=== PATIENT | female | born 1945 | race Caucasian/White ===

== ENCOUNTER 2018-11-30 19:45 | Emergency (ER) | payer MEDICARE, BC, OTHER ==
[2018-11-30 21:46] LABS: Actual Bicarbonate (HCO3a) 29.8 mEq/L (22-28); Analyzer IN Cardio ER; Base Excess (BEa) 4.6 mEq/L (-2.0 to +3.0); CO2 Tension 45.9 mmHg (35.0-45.0); Calcium, Ionized 1.16 mmol/L (1.12-1.30); Carboxyhemoglobin (COHb) 0.9 gm% (0.0-3.0); Hemoglobin (Hb) 15.5 g/dL (12.0-16.0); pH, Arterial 7.43 (7.35-7.45)
[2018-11-30 21:47] LABS: ALV-art Gradient 33.055 (0-20); O2 Tension (PaO2) 59.3 mmHg (> 70.0); Puncture Site RRA
--- NOTE | 2018-11-30 22:09 | RAD ---
CHEST ONE VIEW: 11/30/18 HISTORY: Cough. COMPARISON: Radiograph 03/07/16. FINDINGS: Heart size is mildly enlarged. Mild pulmonary venous congestion. Mild prominence of the pulmonary art eries. No pneumothorax. Small effusions. IMPRESSION: Cardiomegaly. Small effusions and mild pulmonary venous congestion. POS: HOME
[2018-11-30 22:10] LABS: #Lymphocytes 0.9 thou/uL (1.20-3.40); #Monocytes 0.5 thou/uL (0.11-0.59); #Neutrophils 5.3 thou/uL (1.40-6.50); %Basophils 0.6 % (0.0-1.0); %Eosinophils 0.2 % (0.0-10.0); %Lymphocytes 13.2 % (21.0-51.0); %Monocytes 6.7 % (0.0-10.0); %Neutrophils 79.3 % (42.0-75.0); Hemoglobin 15.3 g/dL (12.0-16.0); Mean Corpuscular HGB CONC 34.5 g/dL (32.0-36.0); Mean Corpuscular Hemoglobin 32.2 pg (27.0-31.0); Mean Corpuscular Volume 93.2 fL (78.0-98.0); Mean Platelet Volume 8.1 fL (7.4-10.4); Platelet Count 183 thou/uL (130-400); RBC Distribution Width 11.9 % (11.5-14.5); Red Blood Cell (RBC) Count 4.74 mill/uL (4.20-5.40); White Blood Cell (WBC) Count 6.7 thou/uL (4.8-10.8)
[2018-11-30 22:27] LABS: Bilirubin Negative (Negative); Blood, Urine Negative (Negative); Clarity CLEAR (Clear); Glucose, Urine (Dipstick) Negative (Negative); Leukocyte Small (Negative); Nitrite Negative (Negative); Protein, Urine (Dipstick) Negative (Neg-Trace); Specific Gravity, Urine 1.016 (1.002-1.036)
[2018-11-30 22:30] LABS: Bacteria/HPF None Seen HPF (None Seen); Hyaline Casts/LPF 0-3 HYALINE CAST LPF (0-3 Hyaline); Pathc Cast-AUWi Flag 0.29 (0-2.49); RBC/HPF None Seen HPF (0-3); Squamous Epithelial 0-3 HPF (0-3)
[2018-11-30 22:45] LABS: ALT (SGPT) 16 U/L (8-55); AST (SGOT) 20 U/L (5-34); Albumin 3.6 g/dL (3.4-4.8); Alkaline Phosphatase 69 U/L (40-150); Anion Gap 15 mmol/L (10-20); BUN (Urea Nitrogen) 12 mg/dL (9.8-20.1); Bilirubin, Total 0.6 mg/dL (0.2-1.2); CK (CPK) 308 U/L (29-168); Calc. Creatinine Clearance 0 mL/min (70-130); Calcium 9.2 mg/dL (7.8-10.44); Carbon Dioxide 28 mmol/L (23-31); Chloride 99 mmol/L (98-107); Estimated GFR-MDRD 80; Globulin 3.3 g/dL (2.4-3.5); Glucose 125 mg/dL (83-110); Lipase 16 U/L (8-78); Potassium 3.9 mmol/L (3.5-5.1); Protein, Total 6.9 g/dL (6.0-8.3); Sodium 138 mmol/L (136-145)
== END 2018-11-30 23:18 | disposition home or self-care (01) ==
LOC: ERS 19:45
DX: F03.90 Unspecified dementia, unspecified severity, without behavioral disturbance, psychotic disturbance, mood disturbance, and anxiety (principal); J20.9 Acute bronchitis, unspecified; E03.9 Hypothyroidism, unspecified; K21.9 Gastro-esophageal reflux disease without esophagitis; I10 Essential (primary) hypertension; E66.9 Obesity, unspecified; Z86.718 Personal history of other venous thrombosis and embolism; Z87.891 Personal history of nicotine dependence; Z79.899 Other long term (current) drug therapy
CPT/HCPCS: 36415; 51701; 71045; 80053; 81003; 81015; 82550; 82805; 83690; 83880; 84484; 85025; 87040; 87086; 87804; 93005; 96360; 96361; A4353

== ENCOUNTER 2020-03-15 20:49 | Inpatient (IN) | payer MEDICARE, BC, MEDICAID ==
[2020-03-16] MEDS ORDERED: Ondansetron ODT 4 MG TAB PO PRN (00:04)
[2020-03-16] MEDS ORDERED: Calcium Carbonate 500 MG ChewTAB PO PRN (00:04)
[2020-03-16] MEDS ORDERED: Acetaminophen 325 MG TAB PO PRN (00:04)
[2020-03-16] MEDS ORDERED: Ondansetron PF 4 MG/2 ML Vial IVP PRN (00:04)
[2020-03-16] MEDS ORDERED: Acetaminophen 650 MG Suppository PR PRN (00:04)
[2020-03-16] MEDS ORDERED: Ibuprofen 200 MG TAB PO PRN (00:42)
[2020-03-16] MEDS ORDERED: Sodium Chloride 0.9% 1,000 ML IV SCH (01:00)
[2020-03-16] MEDS: Sodium Chloride 0.9% 1,000 ML IV SCH ×3 (01:18→21:05)
[2020-03-16] MEDS: cefTRIAXone\\ROCEPHIN 2 GM in Sodium Chloride 0.9% 100 ML IVPB SCH (01:18)
[2020-03-16 01:35] LABS: Troponin I 0.136 ng/mL (< 0.028)
[2020-03-16] MEDS ORDERED: Enoxaparin Sodium 40 MG/0.4 ML SYRINGE SC SCH (02:00)
--- NOTE | 2020-03-16 02:39 | PDOC.FPRHP ---
- History of Present Illness Chief Complaint: AMS History of Present Illness: 74 yo female here with AMS and sepsis likely 2/2 UTI. Pt A&Ox0. Pt did not respond to questioning. Unable to get history from patient. Pt was found to have fever and tachycardia upon presentation to the ER. Called [facility] from which pt came. They had switched shifts and did not have much history to report from current staff on. Called pt Daughter in [place]. States she was called and told she was starting to act more altered then usual and not responding around 4 in the afternoon. She reports she has history of sundowning in the afternoons but has had episodes like this in the past when she has infections. She reports that she is not able to use right side to hx of brain mets and removal of L. Frontal parietal lobe. She reports she had seizure years ago but has been stable on her 2 seizure medications. Denies any recent adjustments to medication. ED Course: Got Cefepime and Vanc and 30ml/kg bolus in outside ER. - Allergies/Adverse Reactions Allergies Allergy/AdvReac Type Severity Reaction Status Date / Time iodine Allergy Mild Verified 03/16/20 04:34 codeine [Codeine] Allergy Verified 03/16/20 04:34 Iodinated Contrast Media Allergy Verified 03/16/20 04:34 [Iodinated Contrast Media - IV Dye] Sulfa (Sulfonamide Allergy Verified 03/16/20 04:34 Antibiotics) Tetracyclines Allergy Verified 03/16/20 04:34 - Home Medications Medication Instructions Recorded Confirmed Type Levothyroxine Sodium 88 mcg PO DAILY 04/26/13 03/16/20 History levETIRAcetam [levETIRAcetam Oral 500 mg PO TID 04/26/13 03/16/20 History Solution] Acetaminophen [Tylenol] 325 mg PO Q6HR PRN 03/05/16 03/16/20 History Divalproex Sodium [Depakote ER] 500 mg PO DAILY 03/05/16 03/16/20 History Famotidine [Pepcid] 20 mg PO DAILY 03/05/16 03/16/20 History Ipratropium/Albuterol Sulfate 3 ml NEB QID PRN 03/05/16 03/16/20 History [Duoneb] Potassium Chloride [K-Dur] 20 meq PO BID 03/05/16 03/16/20 History Furosemide [Lasix] 20 mg PO DAILY 03/16/20 03/16/20 History Menthol [Biofreeze 4% Gel] 1 applic TOP QID PRN 03/16/20 03/16/20 History - History PMHx: HTN, GERD, Hypothyroidism, Hx Lung cancer w/ Brain mets PSHx: RLL wedge lung resection, L. Frontal Parietal Lobectomy, Appendectomy, Cholecystectomy, Hysterectomy, L. Ankle Repair FHx: Noncontributory Social: Pt former smoker, Daughter in Law denies alcohol or illicit drug use - Review of Systems ROS unobtainable: due to mental status - Vital signs BP: [136/84] HR: [112] RR: [18] Tmax: [101.1 axillary] Pox: [100]% on [2L] Wt : [92kg] - Physical Exam -Constitutional: Pt A&Ox2. Pt having some chills when in room HEENT: conjunctiva clear Neck: supple, trachea midline, no JVD, no thyromegaly -Heart: Sinus tachycardia, no murmurs or gallops Lungs: CTAB, no respiratory distress, good air movement, no rales/rhonchi, no wheezing Abdomen: soft, non-tender, bowel sounds present, no masses/distention -Neurological: Unable to fully assess due to mental status Skin: no rash/lesions Heme/Lymphatic: no unusual bruising or bleeding -Psychiatric: A&Ox 0 FMR H&P: Results - Labs Result Diagrams: 03/16/20 05:15 03/16/20 05:15 - EKG Interpretation EKG: Reported showed LBBB and sinus tachycardia. Repeat pending - Radiology Interpretation CT scan - head Status: image reviewed by me, report reviewed by me (Brain CT: Significantly limited exam. No intracranial abnormality) Chest x-ray Status: image reviewed by me, report reviewed by me ( CXR: Cardiomegaly and chronic interstitial lung diseas) FMR H&P: A/P - Problem List (1) Sepsis Current Visit: Yes Status: Acute Code(s): A41.9 - SEPSIS, UNSPECIFIED ORGANISM (2) UTI (urinary tract infection) Current Visit: Yes Status: Acute (3) HTN (hypertension) Current Visit: Yes Status: Acute Code(s): I10 - ESSENTIAL (PRIMARY) HYPERTENSION (4) Hypothyroidism Current Visit: Yes Status: Acute Code(s): E03.9 - HYPOTHYROIDISM, UNSPECIFIED (5) GERD (gastroesophageal reflux disease) Current Visit: Yes Status: Acute Code(s): K21.9 - GASTRO-ESOPHAGEAL REFLUX DISEASE WITHOUT ESOPHAGITIS (6) History of adenocarcinoma of lung Current Visit: Yes Status: Acute Code(s): Z85.118 - PERSONAL HISTORY OF MALIGNANT NEOPLASM OF BRONCHUS AND LUNG (7) Hx of craniotomy Current Visit: Yes Status: Acute Code(s): Z98.890 - OTHER SPECIFIED POSTPROCEDURAL STATES (8) History of lobectomy of lung Current Visit: Yes Status: Acute Code(s): Z90.2 - ACQUIRED ABSENCE OF LUNG [ PART OF] (9) Seizure Current Visit: Yes Status: Acute Code(s): R56.9 - UNSPECIFIED CONVULSIONS (10) NSTEMI (non-ST elevated myocardial infarction) Current Visit: Yes Status: Acute Code(s): I21.4 - NON-ST ELEVATION (NSTEMI) MYOCARDIAL INFARCTION - Plan AMS -likely 2/2 sepsis from UTI. Pt somewhat Hyperthyroid as well. A&Ox0. Hx of L. Frontal Parietal Lobectomy -Speech consulted -Hx of seizures- no seizure activity noted. Prolactin pending Sepsis 2/2 UTI -UA shows concern for infection. Has fever and Tachycardia -Given Cefepime and Vanc in ER. Switched to rocephin -Blood and Urine Cx ordered -Given 30ml/kg bolus in ER. Given another 1L bolus. IVF NS@100 -WBC 14. LA 1.8 Type 2 NSTEMI -Trop elevated at ER. Repeat ordered. Will trend. Likely 2/2 demand -EKG at ER showed LBBB. Repeat EKG ordered -ASA Hx Seizures -Continue home meds -Prolactin pending. No seizure activity noted Hx Lung Adenocarcinoma w/ RLL wedge Resection Hx L. Frontal Parietal Lobectomy -Has reported sundowning towards end of day -Has residual R. sided weakness -Fall risk -PT/OT consulted HTN -BP stable, continue home meds Hypothyroidism -TSH .2. Low. Will hold home dose at this time. Spine Met -Daughter in Law reports stable when last saw specialist. Reports not canidate for tx. DVT ppx: Lovenox Dispo: Will tx for UTI. Will give fluids for tachycardia. PT/OT/Speech to further assess pt AMS. Addendum - Attending - Attending Attestation Date/Time: 03/16/20 5545 I personally evaluated the patient and discussed the management with Dr. Chi I agree with the History, Examination, Assessment and Plan documented above with any addition or exceptions noted below. Admit for Severe sepsis 2/2 UTI. Meet severe criteria with elevated trop. Resolved with fluids. Continue rocephin. Valproic acid and keppra subtherapeutic. Will contact outpt neurology to discuss. No seizure activity recently per report from DC. Will attempt to contact family to discuss CODE status. LOS likely >48 hrs.
[2020-03-16 05:26] LABS: #Eosinphils 0.1 thou/uL (0.0-0.7); #Lymphocytes 1.9 thou/uL (1.20-3.40); #Monocytes 1.1 thou/uL (0.11-0.59); #Neutrophils 8.3 thou/uL (1.40-6.50); %Basophils 0.3 % (0.0-1.0); %Eosinophils 0.6 % (0.0-10.0); %Lymphocytes 16.7 % (21.0-51.0); %Neutrophils 72.5 % (42.0-75.0); Mean Corpuscular HGB CONC 33.1 g/dL (32.0-36.0); Mean Corpuscular Hemoglobin 31.4 pg (27.0-31.0); Mean Corpuscular Volume 94.8 fL (78.0-98.0); Mean Platelet Volume 8.4 fL (7.4-10.4); Platelet Count 189 thou/uL (130-400); RBC Distribution Width 11.6 % (11.5-14.5); Red Blood Cell (RBC) Count 4.12 mill/uL (4.20-5.40); White Blood Cell (WBC) Count 11.4 thou/uL (4.8-10.8)
[2020-03-16 05:53] LABS: ALT (SGPT) 34 U/L (8-55); AST (SGOT) 35 U/L (5-34); Albumin 2.9 g/dL (3.4-4.8); Alkaline Phosphatase 74 U/L (40-110); Anion Gap 12 mmol/L (10-20); BUN (Urea Nitrogen) 7 mg/dL (9.8-20.1); Bilirubin, Total 0.5 mg/dL (0.2-1.2); Calc. Creatinine Clearance 135 mL/min (70-130); Calcium 7.8 mg/dL (7.8-10.44); Carbon Dioxide 23 mmol/L (23-31); Chloride 103 mmol/L (98-107); Estimated GFR-MDRD Greater than 90; Globulin 2.6 g/dL (2.4-3.5); Glucose 98 mg/dL (83-110); Potassium 3.2 mmol/L (3.5-5.1); Protein, Total 5.5 g/dL (6.0-8.3); Sodium 135 mmol/L (136-145)
[2020-03-16 05:55] LABS: Troponin I 0.092 ng/mL (< 0.028)
[2020-03-16] MEDS: levETIRAcetam 500 mg/5 ml Oral Solution PO SCH ×3 (08:56→21:05)
[2020-03-16] MEDS: Famotidine 20 MG TAB PO SCH (08:56)
[2020-03-16] MEDS: Potassium Chloride 20 MEQ TAB PO SCH ×2 (08:57→18:13)
[2020-03-16] MEDS: Aspirin 81 mg Enteric Coated Tablet PO SCH (08:57)
[2020-03-16] MEDS ORDERED: Famotidine/PF 20 mg/2ml Vial SLOW IVP SCH (09:00)
[2020-03-16 12:52] VITALS: BMI 30.9
--- NOTE | 2020-03-16 17:39 | EKG ---
Test Reason : TROP Blood Pressure : / mmHG Vent. Rate : 100 BPM Atrial Rate : 100 BPM P-R Int : 172 ms QRS Dur : 086 ms QT Int : 374 ms P-R-T Axes : 060 031 048 degrees QTc Int : 482 ms Normal sinus rhythm Normal ECG When compared with ECG of 30-NOV-2018 21:33, Left bundle branch block is no longer Present Confirmed by DR. Caitlyn GUIDRY ([id number]) on 03/16/2020 5:39:07 PM Referred By: ROSAS Confirmed By:DR. Caitlyn GUIDRY
[2020-03-17] MEDS: cefTRIAXone\\ROCEPHIN 2 GM in Sodium Chloride 0.9% 100 ML IVPB SCH (01:22)
--- NOTE | 2020-03-17 07:02 | PDOC.FM ---
- Subjective Subjective: Patient is somewhat more alert this morning and responsive to her name. Disoriented to location or time. While in the room, witnessed patient's left arm with repetitive jerking motion, patient was alert at the time of this occurring. Rest of history and ROS unobtainable 2/2 patient's mental status. - Objective MAR Reviewed: Yes Vital Signs & Weight: Vital Signs (12 hours) Temp Pulse Resp BP Pulse Ox 03/17/20 03:23 97.9 F 78 16 135/80 94 L 03/16/20 23:10 97.7 F 71 16 109/64 93 L 03/16/20 20:35 97.8 F 70 16 107/65 91 L Weight Admit Weight 92.079 kg Weight 92.079 kg I&O: 03/16/20 03/17/20 03/18/20 06:59 06:59 06:59 Intake Total 600 1800 Balance 600 1800 Result Diagrams: 03/17/20 07:16 03/17/20 07:16 Phys Exam - Physical Examination Constitutional: NAD HEENT: moist MMs, sclera anicteric Neck: no JVD, supple Respiratory: no rhonchi, clear to auscultation bilateral Cardiovascular: RRR, no significant murmur Gastrointestinal: soft, no distention, positive bowel sounds TTP over suprapubic area Musculoskeletal: no edema, pulses present Neurological: moves all 4 limbs rhythmic jerking motion of left arm/shoulder Psychiatric: normal affect Deviation from normal: alerted, oriented to her name, not oriented to place or time unable to answer questions Skin: no rash, normal turgor Dx/Plan (1) AMS (altered mental status) Code(s): R41.82 - ALTERED MENTAL STATUS, UNSPECIFIED Status: Acute Qualifiers: Altered mental status type: disorientation Qualified Code(s): R41.0 - Disorientation, unspecified (2) HTN (hypertension) Code(s): I10 - ESSENTIAL (PRIMARY) HYPERTENSION Status: Acute Qualifiers: Hypertension type: unspecified Qualified Code(s): I10 - Essential (primary ) hypertension (3) Hx of craniotomy Code(s): Z98.890 - OTHER SPECIFIED POSTPROCEDURAL STATES Status: Acute (4) NSTEMI (non-ST elevated myocardial infarction) Code(s): I21.4 - NON-ST ELEVATION (NSTEMI) MYOCARDIAL INFARCTION Status: Acute (5) Sepsis Code(s): A41.9 - SEPSIS, UNSPECIFIED ORGANISM Status: Acute Qualifiers: Sepsis type: sepsis due to unspecified organism Sepsis acute organ dysfunction status: without acute organ dysfunction Qualified Code(s): A41.9 - Sepsis, unspecified organism (6) UTI (urinary tract infection) Status: Acute Qualifiers: Urinary tract infection type: acute cystitis Hematuria presence: with hematuria Qualified Code(s): N30.01 - Acute cystitis with hematuria - Plan Plan: Patient is a 74 yo female who presents with Sepsis secondary to UTI: #AMS -likely 2/2 sepsis from UTI. Pt somewhat Hyperthyroid as well. A&Ox0. Hx of L. Frontal Parietal Lobectomy -Speech therapy consulted--recommend continued ORTHOTICS PROSTHETICS ASSISTANT therapy -Hx of seizures- see below -Prolactin pending #Sepsis 2/2 UTI -UA shows concern for infection. Has fever and Tachycardia -Given Cefepime and Vanc in ER. Switched to Rocephin on admission (03/16) -Blood and Urine Cx ordered, results pending (done at outside facility) -Given 30ml/kg bolus in ER. Given another 1L bolus. IVF NS@100 -WBC 14. LA 1.8 #Type 2 NSTEMI -Trop elevated at ER. Will trend. Likely 2/2 demand 0.038 > 0.136 > 0.092 -EKG at ER showed LBBB. Repeat EKG similar -ASA given #Hx Seizures -Continue home meds of Keppra & Depakote -Prolactin pending. No seizure activity noted -Keppra level <2 (low), Depakote level 28.4 (low, therapeutic range 50-100) -will need to arrange for outpatient f/u with Neurology to have seizure meds titrated, spoke with [id number] Iris on 03/16 who states she will look into which Neurologist is associated with [facility] where patient resides, offered to arrange with Neurologist in [facility] Dr. Theodore as an option if unable to determine another neurologist of patient's preference -rhythmic jerking motion observed in left arm/shoulder while patient alert and lying in bed -daughter in law reports that patient last saw a neurologist in [place] 8 yrs ago, this physician has since retired, states seizure meds have been being refilled by PCP #Hx Lung Adenocarcinoma w/ RLL wedge Resection #Hx L. Frontal Parietal Lobectomy -Has reported sundowning towards end of day -Has residual R. sided weakness -Fall risk -PT/OT consulted #HTN -BP stable, continue home meds #Hypothyroidism -TSH .2. Low. Will hold home dose at this time. #Spine Met -Daughter in Law reports stable when last saw specialist. Reports not candidate for tx. Diet: Regular with Ensure Enlive supplement BID DVT ppx: Lovenox Code status: DNR PCP: Terri Carrillo, confirmed by [facility] paperwork Dispo: Will tx for UTI. Will give fluids for tachycardia. Await urine culture results. Anticipate discharge back to [facility] in < 48 hours. Addendum - Attending - Attending Attestation Date/Time: 03/17/20 5916 I personally evaluated the patient and discussed the management with Dr. Luz. I agree with the History, Examination, Assessment and Plan documented above with any addition or exceptions noted below. Blood cx 2/2 positive for MRSE. UCx positive for GNR. Add vanc, continue rocephin. Patient is having twitching of left shoulder/neck. Alert during these episodes but given hx of seizures, will consult neurology for evaluation. Patient's PCP is Dr[facility] Will call and transfer care tomorrow.
[2020-03-17 07:28] LABS: #Eosinphils 0.2 thou/uL (0.0-0.7); #Lymphocytes 1.3 thou/uL (1.20-3.40); #Monocytes 0.7 thou/uL (0.11-0.59); #Neutrophils 5.8 thou/uL (1.40-6.50); %Basophils 0.6 % (0.0-1.0); %Eosinophils 2.3 % (0.0-10.0); %Lymphocytes 16.6 % (21.0-51.0); %Monocytes 8.6 % (0.0-10.0); %Neutrophils 71.9 % (42.0-75.0); Hemoglobin 13.3 g/dL (12.0-16.0); Mean Corpuscular HGB CONC 33.4 g/dL (32.0-36.0); Mean Corpuscular Hemoglobin 31.7 pg (27.0-31.0); Mean Corpuscular Volume 94.8 fL (78.0-98.0); Mean Platelet Volume 8.2 fL (7.4-10.4); Platelet Count 190 thou/uL (130-400); RBC Distribution Width 11.4 % (11.5-14.5); Red Blood Cell (RBC) Count 4.21 mill/uL (4.20-5.40)
[2020-03-17 07:50] LABS: ALT (SGPT) 27 U/L (8-55); AST (SGOT) 19 U/L (5-34); Albumin 2.9 g/dL (3.4-4.8); Alkaline Phosphatase 72 U/L (40-110); Anion Gap 12 mmol/L (10-20); BUN (Urea Nitrogen) 6 mg/dL (9.8-20.1); Bilirubin, Total 0.2 mg/dL (0.2-1.2); Calc. Creatinine Clearance 140 mL/min (70-130); Calcium 8.4 mg/dL (7.8-10.44); Carbon Dioxide 27 mmol/L (23-31); Chloride 109 mmol/L (98-107); Estimated GFR-MDRD Greater than 90; Globulin 2.2 g/dL (2.4-3.5); Glucose 96 mg/dL (83-110); Potassium 3.7 mmol/L (3.5-5.1); Protein, Total 5.1 g/dL (6.0-8.3); Sodium 144 mmol/L (136-145)
[2020-03-17] MEDS: Potassium Chloride 20 MEQ TAB PO SCH ×2 (08:37→16:02)
[2020-03-17] MEDS: Aspirin 81 mg Enteric Coated Tablet PO SCH (08:37)
[2020-03-17] MEDS: levETIRAcetam 500 mg/5 ml Oral Solution PO SCH ×3 (08:37→21:21)
[2020-03-17] MEDS: Famotidine 20 MG TAB PO SCH (08:37)
[2020-03-17] MEDS: Sodium Chloride 0.9% 1,000 ML IV SCH ×3 (08:40→21:21)
--- NOTE | 2020-03-17 12:38 | PDOC.BPN ---
- Brief Progress Note Spoke with Dr. Hernández and Dr. Adame from [facility] group, they will assume care of patient on 03/18/2020.
[2020-03-17] MEDS: Vancomycin HCl 1.25 GM in Sodium Chloride 0.9% 250 ML 250 ML IVPB SCH (23:28)
[2020-03-18] MEDS: cefTRIAXone\\ROCEPHIN 2 GM in Sodium Chloride 0.9% 100 ML IVPB SCH (01:39)
[2020-03-18 05:01] LABS: #Eosinphils 0.2 thou/uL (0.0-0.7); #Lymphocytes 1.7 thou/uL (1.20-3.40); #Monocytes 0.5 thou/uL (0.11-0.59); #Neutrophils 4.3 thou/uL (1.40-6.50); %Basophils 0.5 % (0.0-1.0); %Eosinophils 3.3 % (0.0-10.0); %Lymphocytes 25.5 % (21.0-51.0); %Monocytes 7.7 % (0.0-10.0); %Neutrophils 63.2 % (42.0-75.0); Hemoglobin 12.5 g/dL (12.0-16.0); Mean Corpuscular Hemoglobin 31.7 pg (27.0-31.0); Mean Corpuscular Volume 95.9 fL (78.0-98.0); Mean Platelet Volume 8.5 fL (7.4-10.4); Platelet Count 208 thou/uL (130-400); RBC Distribution Width 11.6 % (11.5-14.5); Red Blood Cell (RBC) Count 3.93 mill/uL (4.20-5.40); White Blood Cell (WBC) Count 6.7 thou/uL (4.8-10.8)
[2020-03-18 05:26] LABS: ALT (SGPT) 19 U/L (8-55); AST (SGOT) 11 U/L (5-34); Albumin 2.9 g/dL (3.4-4.8); Alkaline Phosphatase 64 U/L (40-110); Anion Gap 11 mmol/L (10-20); BUN (Urea Nitrogen) 7 mg/dL (9.8-20.1); Bilirubin, Total 0.2 mg/dL (0.2-1.2); Calc. Creatinine Clearance 135 mL/min (70-130); Calcium 8.6 mg/dL (7.8-10.44); Carbon Dioxide 28 mmol/L (23-31); Chloride 105 mmol/L (98-107); Estimated GFR-MDRD Greater than 90; Globulin 2.5 g/dL (2.4-3.5); Glucose 96 mg/dL (83-110); Magnesium 1.6 mg/dL (1.6-2.6); Potassium 3.6 mmol/L (3.5-5.1); Protein, Total 5.4 g/dL (6.0-8.3); Sodium 140 mmol/L (136-145)
[2020-03-18] MEDS: levETIRAcetam 500 mg/5 ml Oral Solution PO SCH ×3 (08:55→19:57)
[2020-03-18] MEDS: Famotidine 20 MG TAB PO SCH (08:55)
[2020-03-18] MEDS: Aspirin 81 mg Enteric Coated Tablet PO SCH (08:55)
[2020-03-18] MEDS: Potassium Chloride 20 MEQ TAB PO SCH ×2 (08:55→18:24)
[2020-03-18] MEDS: Vancomycin HCl 1.25 GM in Sodium Chloride 0.9% 250 ML 250 ML IVPB SCH (12:15)
[2020-03-18] MEDS: Sodium Chloride 0.9% 1,000 ML IV SCH (14:34)
--- NOTE | 2020-03-18 15:33 | ULT ---
BILATERAL RENAL ULTRASOUND: 03/18/20 HISTORY: Recurrent UTIs. FINDINGS: The right kidney measures 10.6 cm in length and the left kidney measures 11 cm in length. No focal m ass or hydronephrosis seen on either side. Cortical echogenicity and thickness appears normal. The pr evoid volume of the urinary bladder is 172 mL. The urinary bladder has a grossly unremarkable appeara nce. No shadowing calculi is seen in the kidneys or urinary bladder. IMPRESSION: Normal exam. POS: [facility]
--- NOTE | 2020-03-18 15:47 | CT ---
CT abdomen and pelvis noncontrast HISTORY: UTI. Flank pain. FINDINGS: Each renal collecting system, ureter, and urinary bladder are decompressed without stone ev ident. There is calcification throughout the arterial structures. Peripheral interstitial thickening at each lung base. Calcified granulomata are consistent with healed granulomatous disease. Chronic appearing compression deformities involving the L2 (40%) and L3 (20%) vertebral bodies. Degenerative changes also evident throughout the lumbar spine. Gallbladder surgically absent. Lack of contrast limits evaluation of the soft tissues. No evidence of bowel obstruction or inflammat ion. At the posterior cortex of the left kidney, a subtle well-circumscribed low-density lesion has the appearance of a cyst. IMPRESSION : No CT evidence of urinary tract obstruction or calcification. No acute abnormalities are demonstrated . Atherosclerosis.
--- NOTE | 2020-03-18 19:31 | PDOC.HOSPP ---
- Subjective Encounter Date: 03/18/20 Encounter Time: 16:00 Subjective: Patient seen and examined for AMS. Mentation improving. No new complaints. No overnight events - Objective Vital Signs & Weight: Vital Signs (12 hours) Temp Pulse Resp BP Pulse Ox 03/18/20 11:07 97.7 F 81 18 130/76 91 L Weight Admit Weight 203 lb Weight 203 lb I&O: 03/17/20 03/18/20 03/19/20 06:59 06:59 06:59 Intake Total 1800 1800 Output Total 2200 Balance 1800 -400 Result Diagrams: 03/19/20 05:17 03/19/20 05:17 Additional Labs: Microbiology 03/15/20 19:00 Urine Straight Catheter Urine Culture - Final Escherichia coli 03/15/20 19:14 Venous blood - Right Arm Blood Culture - Preliminary Staphylococcus epidermidis Coagulase Neg Staphylococcus#2 03/15/20 19:10 Venous blood - Right Arm Blood Culture - Preliminary Staphylococcus species Staphylococcus species#2 Radiology Reviewed by me: Yes (CT abd - no obstructive uropathy) Hospitalist ROS - Review of Systems Cardiovascular: denies: chest pain, palpitations, orthopnea, paroxysmal noc. dyspnea, edema, light headedness, other Gastrointestinal: denies: nausea, vomiting, abdominal pain, diarrhea, constipation, melena, hematochezia, other - Medication Medications: Active Medications Generic Name Dose Route Start Last Admin Trade Name Freq PRN Reason Stop Dose Admin Aspirin 81 mg 03/16/20 09:00 03/18/20 08:55 Ecotrin PO 81 mg DAILY MINDY Administration Divalproex Sodium 500 mg 03/16/20 09:00 03/18/20 08:55 Depakote Er PO 500 mg DAILY MINDY Administration Famotidine 20 mg 03/16/20 09:00 03/18/20 08:55 Pepcid PO 20 mg DAILY MINDY Administration Sodium Chloride 1,000 mls @ 100 mls/hr 03/16/20 00:45 03/18/20 14:34 Normal Saline 0.9% IV Not Given .Q10H MINDY Ceftriaxone Sodium 2 gm/ 100 mls @ 200 mls/hr 03/16/20 01:00 03/18/20 01:39 Sodium Chloride IVPB 100 mls Q24HR MINDY Administration Levetiracetam 500 mg 03/16/20 09:00 03/18/20 15:51 Keppra Oral Solution PO 500 mg TID MINDY Administration Potassium Chloride 20 meq 03/16/20 08:00 03/18/20 18:24 K-Dur PO 20 meq BID-WM MINDY Administration - Exam General Appearance: NAD Neck: supple, no JVD Heart: RRR, no rubs Respiratory: CTAB, no wheezes, no ronchi Gastrointestinal: non-tender, non-distended, normal bowel sounds Extremities: no cyanosis, no clubbing Hosp A/P - Plan DVT proph w/SCDs Toxic Metabolic Encephalopathy/Sepsis due to UTI - POA HTN HLD GERD h/o Lung CA h/o Seizure dz Type 2 TX - POA Obesity BMI 30.9 Hypothyroidism h/o Rt medial malleolus fracture Dementia h/o falls h/o essential tremors Staph bacteremia - prob contaminant PLAN: ID input appreciated Cont IV Ceftriaxone CT abd reviewed Cont other meds as above DC planning AM labs
[2020-03-18] MEDS: Saccharomyces boulardii 250 MG CAP PO SCH (19:57)
--- NOTE | 2020-03-18 20:14 | CON ---
DATE OF CONSULTATION: 03/18/2020 REASON FOR CONSULTATION: Altered mental status, concern with bacteremia. HISTORY OF PRESENT ILLNESS: A 74-year-old, who has a history of pulmonary fibrosis, COPD, chronic smoking, and also history of adenocarcinoma of lung with brain mets, status post resection of the brain mets in 2008. She also had a right lung wedge resection of the adenocarcinoma at the same time. She did have radiation therapy and chemo and has pretty much been in remission since, most likely cured from this malignancy, which is quite remarkable for lung malignancy outcome. The last admission posted in the hospital computer is from 2015 when she had a cholecystectomy, and she has not been here since except for the ER visits, she had one in 2016 when she presented after a fall, when she was trying to get up and go to the bathroom with a few areas of ecchymosis, and in March 2018, she fell again. She was then at a half-way, CT of the head did not show any abnormalities, and subsequently the very next month, she was brought because of injury to the right ankle after a fall. In November 2018, she had altered mental state, which was not confirmed after evaluation in the emergency room, and now she presents with another event associated with altered mental state. She had a CT of head, which did not show anything of significance. Initial findings included a BP of 130/70, pulse 120, respirations 18, temperature 99.4, and O2 saturations were 94. The next temperature that was taken in the emergency room was 101.8, and other findings included a white cell count of 11.4, the lymphocytes were 1.9, and platelet count 189,000. The chemistry with a creatinine 0.54, AST 35, albumin 2.9. Urinalysis was abnormal with 21 to 50 wbc's. Chest x-ray was remarkable for cardiomegaly and some chronic interstitial disease, but no infiltrates, no pleural effusions. Blood cultures with 2 different Staphylococci, probably coagulase-negative Staph both, and there is a urine culture with E coli with a very broad susceptibility profile, 10,000 to 25 ,000 CFUs per mL. Currently, Ms. Painter is awake. She has this steady low- frequency head bobbing movement, which appears to be chronic. She has quite a bit of cognitive impairment and she is unable to provide us with significant data to review about her review of systems or symptoms or history. In the review of systems at the bedside, she did have tenderness on palpation of the abdomen, which was somewhat diffuse. PAST MEDICAL HISTORY: Includes adenocarcinoma of lung, in remission after treatment with resection of lung and brain masses and chemo/radiation therapy; hypothyroidism; hypertension; GERD. SURGICAL HISTORY: Lung and brain mass resections, appendectomy, cholecystectomy , hysterectomy, left ankle repair. FAMILY HISTORY: Not available. SOCIAL HISTORY: Former smoker. residential resident. She has a DNR order. ALLERGY HISTORY: Iodine, codeine, sulfa drugs, and tetracycline. CURRENT MEDICATIONS: 1. Ecotrin. 2. Tums. 3. Ceftriaxone. 4. Depakote. 5. Pepcid. 6. Motrin. 7. Keppra. 8. Zofran. 9. K-Dur. 10. Vancomycin. PHYSICAL EXAMINATION: VITAL SIGNS: T-max 101, currently 97.4. BP 130/76, pulse 81, respirations 18, and O2 saturation 91% to 93%. SKIN: Shows a peripheral IV access. She does not have a Chavez catheter and no lymphadenopathy. HEENT: Ocular movements are conjugate. Oral cavity normal except for absence of [place] dentition. NECK: Supple. No jugular vein distention. LUNGS: Symmetric, clear breath sounds. HEART: S1 and S2, regular rate. No S3 or S4. ABDOMEN: Soft with tenderness in various areas of the abdominal area, mostly in the lower quadrants. No rebound tenderness. No masses are palpable. Question of bladder distention. 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 Pulses 1+ in dorsalis pedis. No edema. She is able to move extremities on command. Plantar responses are flexor. NEUROLOGIC: She has this low-frequency tremor with bobbing of head, which probably is essential tremor. She is awake, could not tell me her name or the location or the date. She was able to follow some commands. LABORATORY STUDIES: White cell count is down to 6.7, hemoglobin 12.5, platelets 208. Sodium 135, creatinine 0.54, with AST 35, albumin 2.9. ASSESSMENT: 1. Lung cancer, presumably in remission, more than 10 years after the treatment, which included surgery and chemoradiation therapy elsewhere. 2. Dementia. 3. Essential tremor. 4. Altered mental state. 5. Fever with abnormal urinalysis and positive urine culture. DISCUSSION: The first thing to be considered is COVID-19. She does not have lymphocytopenia. Had a fever on arrival. Chest x-ray was normal. Apparently, there has been no cases identified in the half-way where she is admitted. The urine culture showed only a low number of E coli organisms, although that could still be the main issue causing the patient's symptoms and I think we should image her abdomen to make sure she does not have obstructive uropathy and make sure she is not retaining urine. She has been started on Rocephin and there has been prompt resolution of neutrophilia. She has a normal differential at this moment and the likelihood of COVID-19 is low, so I am not going to recommend testing at this time. The bacteremia is more likely to represent contamination of the sample rather than true bacteremia and I would not advise treating this finding. The reason for that is because she has more than one coagulase-negative Staphylococcus in each sample and she does not have a device. She was a difficult stick for obtaining samples of blood, and the sample timing is logged as only 4 minutes difference in the timing of the collection. Anyway, so I see a quite a bit of technical issues with the sample and I would not treat this finding. In view of abd tenderness and abnormal urine findings, will check abdpelvis CT Job ID: [id number] [facility]
[2020-03-19] MEDS: Sodium Chloride 0.9% 1,000 ML IV SCH ×3 (01:21→12:26)
[2020-03-19] MEDS: cefTRIAXone\\ROCEPHIN 2 GM in Sodium Chloride 0.9% 100 ML IVPB SCH (01:21)
[2020-03-19 05:45] LABS: #Eosinphils 0.3 thou/uL (0.0-0.7); #Lymphocytes 1.5 thou/uL (1.20-3.40); #Monocytes 0.5 thou/uL (0.11-0.59); #Neutrophils 4.3 thou/uL (1.40-6.50); %Basophils 0.7 % (0.0-1.0); %Eosinophils 3.8 % (0.0-10.0); %Neutrophils 65.4 % (42.0-75.0); Hemoglobin 13.6 g/dL (12.0-16.0); Mean Corpuscular HGB CONC 33.5 g/dL (32.0-36.0); Mean Corpuscular Hemoglobin 32.3 pg (27.0-31.0); Mean Corpuscular Volume 96.3 fL (78.0-98.0); Mean Platelet Volume 8.7 fL (7.4-10.4); Platelet Count 231 thou/uL (130-400); RBC Distribution Width 11.7 % (11.5-14.5); Red Blood Cell (RBC) Count 4.23 mill/uL (4.20-5.40); White Blood Cell (WBC) Count 6.6 thou/uL (4.8-10.8)
[2020-03-19 06:00] LABS: ALT (SGPT) 16 U/L (8-55); AST (SGOT) 12 U/L (5-34); Alkaline Phosphatase 69 U/L (40-110); Anion Gap 14 mmol/L (10-20); BUN (Urea Nitrogen) 6 mg/dL (9.8-20.1); Bilirubin, Total 0.2 mg/dL (0.2-1.2); Calc. Creatinine Clearance 135 mL/min (70-130); Calcium 8.9 mg/dL (7.8-10.44); Carbon Dioxide 24 mmol/L (23-31); Chloride 106 mmol/L (98-107); Estimated GFR-MDRD Greater than 90; Globulin 2.7 g/dL (2.4-3.5); Glucose 91 mg/dL (83-110); Magnesium 1.6 mg/dL (1.6-2.6); Potassium 3.9 mmol/L (3.5-5.1); Protein, Total 5.7 g/dL (6.0-8.3); Sodium 140 mmol/L (136-145)
[2020-03-19] MEDS: Cyanocobalamin (Vitamin B-12) 1,000 MCG TAB PO SCH (08:13)
[2020-03-19] MEDS: Famotidine 20 MG TAB PO SCH (08:13)
[2020-03-19] MEDS: levETIRAcetam 500 mg/5 ml Oral Solution PO SCH ×3 (08:13→20:14)
[2020-03-19] MEDS: Potassium Chloride 20 MEQ TAB PO SCH ×2 (08:13→16:33)
[2020-03-19] MEDS: Aspirin 81 mg Enteric Coated Tablet PO SCH (08:13)
[2020-03-19] MEDS ORDERED: Senokot S 8.6-50 MG TAB PO SCH (10:15)
[2020-03-19] MEDS ORDERED: Polyethylene Glycol 3350 17 GM Packet PO SCH (10:15)
--- NOTE | 2020-03-19 15:32 | PRG ---
DATE OF SERVICE: 03/19/2020 SUBJECTIVE: The patient is awake and every time I ask her about complaints, she denies anything. I am not sure the reliability of that because of her cognitive dysfunction. Does not seem to be in distress. She has been afebrile except for the very first time when she came in, but since she has remained so. OBJECTIVE: VITAL SIGNS: Other vital signs are normal. O2 saturations are 95 on room air. GENERAL: Does not appear in distress. She has that essential tremor as before previously noted. LUNGS: Clear. HEART: S1 and S2. Regular rate. ABDOMEN: Soft, not distended or tender. LABORATORY DATA: White cell count 6.6, hemoglobin 13.6, and platelets 231. Creatinine 0.54. The abdomen and pelvis CT were done without contrast and it showed no evidence of urinary tract obstruction. There was calcification throughout arterial structures and interstitial thickening at the each lung base. Some compression deformities at L2 and L3 and a kidney cyst, nothing else of significance. ASSESSMENT AND DISCUSSION: Lung cancer in remission more than 10 years after treatment, dementia, essential tremor, altered mental state, fever, and abnormal urinalysis. At this point in time, I would probably treat this as an invasive urinary tract infection in the absence of other explanatory factor and I would consider a quinolone for discharge planning for few days, maybe seven days or so. Job ID: [id number]
--- NOTE | 2020-03-19 19:36 | PDOC.HOSPP ---
- Subjective Encounter Date: 03/19/20 Encounter Time: 16:00 Subjective: Patient seen and examined for AMS. No new complaints. No overnight events - Objective Vital Signs & Weight: Vital Signs (12 hours) Temp Pulse Resp BP Pulse Ox 03/19/20 15:22 97.8 F 74 14 131/72 93 L 03/19/20 11:52 98.3 F 68 14 108/59 L 95 03/19/20 08:13 94 L Weight Admit Weight 203 lb Weight 203 lb I&O: 03/18/20 03/19/20 03/20/20 06:59 06:59 06:59 Intake Total 1800 1300 Output Total 2200 1000 Balance -400 300 Result Diagrams: 03/19/20 05:17 03/19/20 05:17 Additional Labs: Microbiology 03/15/20 19:00 Urine Straight Catheter Urine Culture - Final Escherichia coli 03/15/20 19:14 Venous blood - Right Arm Blood Culture - Preliminary Staphylococcus epidermidis Coagulase Neg Staphylococcus#2 03/15/20 19:10 Venous blood - Right Arm Blood Culture - Preliminary Staphylococcus species Staphylococcus species#2 Radiology Reviewed by me: Yes (CT abd - no obstructive uropathy) Hospitalist ROS - Medication Medications: Active Medications Generic Name Dose Route Start Last Admin Trade Name Freq PRN Reason Stop Dose Admin Aspirin 81 mg 03/16/20 09:00 03/19/20 08:13 Ecotrin PO 81 mg DAILY MINDY Administration Cyanocobalamin 1,000 mcg 03/19/20 09:00 03/19/20 08:13 Vitamin B-12 PO 1,000 mcg DAILY MINDY Administration Divalproex Sodium 500 mg 03/16/20 09:00 03/19/20 08:13 Depakote Er PO 500 mg DAILY MINDY Administration Famotidine 20 mg 03/16/20 09:00 03/19/20 08:13 Pepcid PO 20 mg DAILY MINDY Administration Ceftriaxone Sodium 2 gm/ 100 mls @ 200 mls/hr 03/16/20 01:00 03/19/20 01:21 Sodium Chloride IVPB 100 mls Q24HR MINDY Administration Sodium Chloride 1,000 mls @ 50 mls/hr 03/19/20 12:04 03/19/20 12:26 Normal Saline 0.9% IV Not Given .Q20H MINDY Levetiracetam 500 mg 03/16/20 09:00 03/19/20 14:15 Keppra Oral Solution PO 500 mg TID MINDY Administration Potassium Chloride 20 meq 03/16/20 08:00 03/19/20 16:33 K-Dur PO 20 meq BID-WM MINDY Administration Saccharomyces Boulardii 250 mg 03/18/20 21:00 03/18/20 19:57 Florastor PO 250 mg HS MINDY Administration Hosp A/P - Plan Toxic Metabolic Encephalopathy/Sepsis due to UTI - POA HTN HLD GERD h/o Lung CA h/o Seizure dz Type 2 MO - POA Obesity BMI 30.9 Hypothyroidism h/o Rt medial malleolus fracture Dementia h/o falls h/o essential tremors Staph bacteremia - prob contaminant PLAN: Cont IV Ceftriaxone per ID Cont Depakote Add Miralax Cont other meds as above DC planning in 24 hr if stable/cultures available Attempted to call family - no answer
[2020-03-19] MEDS: Saccharomyces boulardii 250 MG CAP PO SCH (20:14)
[2020-03-19] MEDS: Senokot S 8.6-50 MG TAB PO SCH (20:15)
[2020-03-20] MEDS: cefTRIAXone\\ROCEPHIN 2 GM in Sodium Chloride 0.9% 100 ML IVPB SCH (01:33)
[2020-03-20 05:25] LABS: #Eosinphils 0.2 thou/uL (0.0-0.7); #Lymphocytes 1.9 thou/uL (1.20-3.40); #Monocytes 0.6 thou/uL (0.11-0.59); #Neutrophils 5.1 thou/uL (1.40-6.50); %Basophils 0.4 % (0.0-1.0); %Eosinophils 3.1 % (0.0-10.0); %Lymphocytes 23.7 % (21.0-51.0); %Monocytes 7.2 % (0.0-10.0); %Neutrophils 65.7 % (42.0-75.0); Hemoglobin 14.1 g/dL (12.0-16.0); Mean Corpuscular HGB CONC 32.2 g/dL (32.0-36.0); Mean Corpuscular Volume 96.4 fL (78.0-98.0); Mean Platelet Volume 7.9 fL (7.4-10.4); Platelet Count 241 thou/uL (130-400); RBC Distribution Width 11.7 % (11.5-14.5); Red Blood Cell (RBC) Count 4.55 mill/uL (4.20-5.40); White Blood Cell (WBC) Count 7.8 thou/uL (4.8-10.8)
[2020-03-20 05:27] LABS: ALT (SGPT) 13 U/L (8-55); AST (SGOT) 10 U/L (5-34); Albumin 3.1 g/dL (3.4-4.8); Alkaline Phosphatase 67 U/L (40-110); Anion Gap 12 mmol/L (10-20); BUN (Urea Nitrogen) 10 mg/dL (9.8-20.1); Bilirubin, Total 0.2 mg/dL (0.2-1.2); Calc. Creatinine Clearance 130 mL/min (70-130); Calcium 8.8 mg/dL (7.8-10.44); Carbon Dioxide 23 mmol/L (23-31); Chloride 107 mmol/L (98-107); Estimated GFR-MDRD Greater than 90; Globulin 2.7 g/dL (2.4-3.5); Glucose 96 mg/dL (83-110); Magnesium 1.7 mg/dL (1.6-2.6); Potassium 3.6 mmol/L (3.5-5.1); Protein, Total 5.8 g/dL (6.0-8.3); Sodium 138 mmol/L (136-145)
[2020-03-20] MEDS: Senokot S 8.6-50 MG TAB PO SCH ×2 (08:12→22:01)
[2020-03-20] MEDS: Polyethylene Glycol 3350 17 GM Packet PO SCH (08:12)
[2020-03-20] MEDS: Aspirin 81 mg Enteric Coated Tablet PO SCH (08:12)
[2020-03-20] MEDS: Cyanocobalamin (Vitamin B-12) 1,000 MCG TAB PO SCH (08:12)
[2020-03-20] MEDS: levETIRAcetam 500 mg/5 ml Oral Solution PO SCH ×3 (08:12→22:00)
[2020-03-20] MEDS: Potassium Chloride 20 MEQ TAB PO SCH ×2 (08:12→17:50)
[2020-03-20] MEDS: Famotidine 20 MG TAB PO SCH (08:13)
[2020-03-20] MEDS: Sodium Chloride 0.9% 1,000 ML IV SCH (08:15)
--- NOTE | 2020-03-20 16:41 | PDOC.HOSPP ---
- Subjective Encounter Date: 03/20/20 Encounter Time: 16:40 Subjective: Ms. Painter was seen today in follow-up of UTI. When asked how she is feeling she says " lousy". She says she does not feel any better today than she did when she was admitted. - Objective Vital Signs & Weight: Vital Signs (12 hours) Temp Pulse Resp BP Pulse Ox 03/20/20 15:38 98.4 F 86 14 112/65 95 03/20/20 11:04 97.8 F 77 18 112/65 92 L 03/20/20 08:00 95 03/20/20 07:47 97.3 F L 63 16 120/72 95 03/20/20 05:09 97.5 F L 64 18 137/65 93 L Weight Admit Weight 203 lb Weight 203 lb I&O: 03/19/20 03/20/20 03/21/20 06:59 06:59 06:59 Intake Total 1800 2140 Output Total 2200 1000 Balance -400 1140 Result Diagrams: 03/20/20 05:02 03/20/20 05:02 Hospitalist ROS - Medication Medications: Active Medications Generic Name Dose Route Start Last Admin Trade Name Freq PRN Reason Stop Dose Admin Aspirin 81 mg 03/16/20 09:00 03/20/20 08:12 Ecotrin PO 81 mg DAILY MINDY Administration Cyanocobalamin 1,000 mcg 03/19/20 09:00 03/20/20 08:12 Vitamin B-12 PO 1,000 mcg DAILY MINDY Administration Divalproex Sodium 500 mg 03/16/20 09:00 03/20/20 08:12 Depakote Er PO 500 mg DAILY MINDY Administration Famotidine 20 mg 03/16/20 09:00 03/20/20 08:13 Pepcid PO 20 mg DAILY MINDY Administration Ceftriaxone Sodium 2 gm/ 100 mls @ 200 mls/hr 03/16/20 01:00 03/20/20 01:33 Sodium Chloride IVPB 100 mls Q24HR MINDY Administration Sodium Chloride 1,000 mls @ 50 mls/hr 03/19/20 12:04 03/20/20 08:15 Normal Saline 0.9% IV 1,000 mls .Q20H MINDY Administration Levetiracetam 500 mg 03/16/20 09:00 03/20/20 14:21 Keppra Oral Solution PO 500 mg TID MINDY Administration Polyethylene Glycol 17 gm 03/20/20 09:00 03/20/20 08:12 Miralax PO 17 gm DAILY MINDY Administration Potassium Chloride 20 meq 03/16/20 08:00 03/20/20 08:12 K-Dur PO 20 meq BID-WM MINDY Administration Saccharomyces Boulardii 250 mg 03/18/20 21:00 03/19/20 20:14 Florastor PO 250 mg HS MINDY Administration Senna/Docusate Sodium 2 tab 03/19/20 21:00 03/20/20 08:12 Senokot S PO 2 tab BID MINDY Administration - Exam Eye: PERRL Heart: RRR, no murmur, no gallops, no rubs, normal peripheral pulses Respiratory: CTAB, no wheezes, no rales, no ronchi, normal chest expansion Gastrointestinal: soft, non-tender, non-distended, normal bowel sounds, no palpable masses, no hepatomegaly, no splenomegaly Extremities: no cyanosis, 1+ LE edema Hosp A/P (1) UTI (urinary tract infection) Status: Acute Qualifiers: Urinary tract infection type: acute cystitis Hematuria presence: with hematuria Qualified Code(s): N30.01 - Acute cystitis with hematuria (2) GERD (gastroesophageal reflux disease) Code(s): K21.9 - GASTRO-ESOPHAGEAL REFLUX DISEASE WITHOUT ESOPHAGITIS Status: Acute (3) HTN (hypertension) Code(s): I10 - ESSENTIAL (PRIMARY) HYPERTENSION Status: Acute Qualifiers: Hypertension type: unspecified Qualified Code(s): I10 - Essential (primary ) hypertension (4) Hx of craniotomy Code(s): Z98.890 - OTHER SPECIFIED POSTPROCEDURAL STATES Status: Acute (5) Hypothyroidism Code(s): E03.9 - HYPOTHYROIDISM, UNSPECIFIED Status: Acute - Plan * UTI with encephalopathy- urine culture from 03/15 is growing E. Coli which is fernandez-sensitive, but with low colony counts * Continue Rocephin, and this can be transitioned to a quinolone at discharge * Seizure disorder- continue Keppra and Tegretol * HTN- blood pressure is stable * Hypothyroidism- clinically stable
[2020-03-20] MEDS: Saccharomyces boulardii 250 MG CAP PO SCH (22:01)
[2020-03-21] MEDS: cefTRIAXone\\ROCEPHIN 2 GM in Sodium Chloride 0.9% 100 ML IVPB SCH (01:28)
[2020-03-21] MEDS: Sodium Chloride 0.9% 1,000 ML IV SCH (04:05)
[2020-03-21] MEDS: levETIRAcetam 500 mg/5 ml Oral Solution PO SCH ×3 (08:28→20:04)
[2020-03-21] MEDS: Famotidine 20 MG TAB PO SCH (08:28)
[2020-03-21] MEDS: Potassium Chloride 20 MEQ TAB PO SCH ×2 (08:29→16:35)
[2020-03-21] MEDS: Cyanocobalamin (Vitamin B-12) 1,000 MCG TAB PO SCH (08:29)
[2020-03-21] MEDS: Aspirin 81 mg Enteric Coated Tablet PO SCH (08:29)
[2020-03-21] MEDS: Senokot S 8.6-50 MG TAB PO SCH ×2 (08:29→20:04)
[2020-03-21] MEDS: Polyethylene Glycol 3350 17 GM Packet PO SCH (08:29)
--- NOTE | 2020-03-21 10:21 | PDOC.HOSPP ---
- Subjective Encounter Date: 03/21/20 Encounter Time: 10:20 Subjective: Ms. Painter was seen today in follow-up of UTI with encephalopathy. Today she says she feels fine. When asked if she wants to go back to her facility/home, she says "yes". - Objective Vital Signs & Weight: Vital Signs (12 hours) Temp Pulse Resp BP Pulse Ox 03/21/20 07:59 97.6 F 61 16 114/81 97 03/21/20 00:12 97 F L 66 16 137/81 95 Weight Admit Weight 203 lb Weight 203 lb I&O: 03/20/20 03/21/20 03/22/20 06:59 06:59 06:59 Intake Total 2140 2125 Output Total 1000 800 Balance 1140 1325 Result Diagrams: 03/20/20 05:02 03/20/20 05:02 Hospitalist ROS - Medication Medications: Active Medications Generic Name Dose Route Start Last Admin Trade Name Freq PRN Reason Stop Dose Admin Aspirin 81 mg 03/16/20 09:00 03/21/20 08:29 Ecotrin PO 81 mg DAILY MINDY Administration Cyanocobalamin 1,000 mcg 03/19/20 09:00 03/21/20 08:29 Vitamin B-12 PO 1,000 mcg DAILY MINDY Administration Divalproex Sodium 500 mg 03/16/20 09:00 03/21/20 08:29 Depakote Er PO 500 mg DAILY MINDY Administration Famotidine 20 mg 03/16/20 09:00 03/21/20 08:28 Pepcid PO 20 mg DAILY MINDY Administration Ceftriaxone Sodium 2 gm/ 100 mls @ 200 mls/hr 03/16/20 01:00 03/21/20 01:28 Sodium Chloride IVPB 100 mls Q24HR MINDY Administration Sodium Chloride 1,000 mls @ 50 mls/hr 03/19/20 12:04 03/21/20 04:05 Normal Saline 0.9% IV Not Given .Q20H MINDY Levetiracetam 500 mg 03/16/20 09:00 03/21/20 08:28 Keppra Oral Solution PO 500 mg TID MINDY Administration Polyethylene Glycol 17 gm 03/20/20 09:00 03/21/20 08:29 Miralax PO 17 gm DAILY MINDY Administration Potassium Chloride 20 meq 03/16/20 08:00 03/21/20 08:29 K-Dur PO 20 meq BID-WM MINDY Administration Saccharomyces Boulardii 250 mg 03/18/20 21:00 03/20/20 22:01 Florastor PO 250 mg HS MINDY Administration Senna/Docusate Sodium 2 tab 03/19/20 21:00 03/21/20 08:29 Senokot S PO 2 tab BID MINDY Administration - Exam Eye: PERRL Heart: RRR, no murmur, no gallops, no rubs, normal peripheral pulses Respiratory: CTAB, no wheezes, no rales, no ronchi, normal chest expansion, no tachypnea, normal percussion Gastrointestinal: soft, non-tender, non-distended, normal bowel sounds, no palpable masses, no hepatomegaly Extremities: no cyanosis, 1+ LE edema Hosp A/P (1) UTI (urinary tract infection) Status: Acute Qualifiers: Urinary tract infection type: acute cystitis Hematuria presence: with hematuria Qualified Code(s): N30.01 - Acute cystitis with hematuria (2) GERD (gastroesophageal reflux disease) Code(s): K21.9 - GASTRO-ESOPHAGEAL REFLUX DISEASE WITHOUT ESOPHAGITIS Status: Acute (3) HTN (hypertension) Code(s): I10 - ESSENTIAL (PRIMARY) HYPERTENSION Status: Acute Qualifiers: Hypertension type: unspecified Qualified Code(s): I10 - Essential (primary ) hypertension (4) Hx of craniotomy Code(s): Z98.890 - OTHER SPECIFIED POSTPROCEDURAL STATES Status: Acute (5) Hypothyroidism Code(s): E03.9 - HYPOTHYROIDISM, UNSPECIFIED Status: Acute - Plan * UTI with encephalopathy- due to E. Coli- will trasition her to Cipro * She has improved clinically * Seizure disorder- continue Keppra and Tegretol * HTN- blood pressure is stable * Hypothyroidism- clinically stable * Stable for discharge home
[2020-03-21] MEDS: Saccharomyces boulardii 250 MG CAP PO SCH (20:04)
[2020-03-22] MEDS: cefTRIAXone\\ROCEPHIN 2 GM in Sodium Chloride 0.9% 100 ML IVPB SCH (00:05)
[2020-03-22] MEDS: Sodium Chloride 0.9% 1,000 ML IV SCH (00:05)
[2020-03-22] MEDS: Polyethylene Glycol 3350 17 GM Packet PO SCH (07:44)
[2020-03-22] MEDS: Senokot S 8.6-50 MG TAB PO SCH (07:45)
[2020-03-22] MEDS: Famotidine 20 MG TAB PO SCH (07:45)
[2020-03-22] MEDS: Aspirin 81 mg Enteric Coated Tablet PO SCH (07:45)
[2020-03-22] MEDS: Cyanocobalamin (Vitamin B-12) 1,000 MCG TAB PO SCH (07:45)
[2020-03-22] MEDS: levETIRAcetam 500 mg/5 ml Oral Solution PO SCH (07:46)
[2020-03-22] MEDS: Potassium Chloride 20 MEQ TAB PO SCH (07:46)
[2020-03-22 11:31] VITALS: BP 123/72; TEMP 97.4
--- NOTE | 2020-03-22 12:34 | DIS ---
DATE OF ADMISSION: 03/15/2020 DATE OF DISCHARGE: 03/22/2020 DISCHARGE DISPOSITION: Back to the nursing facility. DISCHARGE DIAGNOSES: 1. Urinary tract infection. 2. Metabolic encephalopathy. 3. Hypertension. 4. Hypothyroidism. 5. Gastroesophageal reflux disease. 6. Adenocarcinoma of the lungs. 7. History of craniotomy. 8. History of lobectomy of the lung due to lung cancer. 9. Seizure disorder. DISCHARGE MEDICATIONS: 1. Ciprofloxacin 500 mg p.o. twice a day. 2. Florastor 250 mg daily. 3. K-Dur 20 mEq twice a day. 4. Levothyroxine 88 mcg p.o. daily. 5. Keppra 500 mg t.i.d. 6. Lasix 20 mg daily. 7. Albuterol nebs q.i.d. as needed. 8. Pepcid 20 mg daily. 9. Depakote extended-release 500 mg daily. 10. Tylenol 325 mg daily. IMAGING: The patient had a CT scan of the abdomen and pelvis showing no evidence of urinary tract obstruction. No calcifications. No acute abnormalities were identified. There were some chronic-appearing compression deformities at L2 and L3 in 40% and 20% respectively. The patient had a renal ultrasound, which was normal. CODE STATUS: DNAR. ALLERGIES: TO IODINE, CODEINE, IODINATED CONTRAST, SULFA, AND TETRACYCLINES. HOSPITAL COURSE: Ms. Painter is a 74-year-old female, who was admitted initially to the [facility] due to changes in her mentation. The full details of which are outlined in the history and physical by Dr. Chi. It was determined that the metabolic encephalopathy was likely as a result of urinary tract infection. Urine cultures grew E coli, which was pansensitive. She was also seen by Dr. Wilhelm during this hospital stay. She was given IV fluids as well as IV antibiotics, and over the course of the next several days, she slowly returned back to her baseline level of functioning. She was then transitioned over to ciprofloxacin for additional treatment as per ID recommendations, and it is anticipated that she will be discharged home tomorrow morning once the nursing facility is able to take her back. Job ID: [id number]
--- NOTE | 2020-03-23 06:52 | PQF ---
EAN CHANEY TONI MD [id number] [facility] [id number] CLINICAL DOCUMENTATION CLARIFICATION FORM: POST DISCHARGE Addendum to original discharge summary date: ____ Late entry note date: __ DATE: 03/23/2020 ATTN: Jose Amaro Please exercise your independent, professional judgment in responding to the clarification form. Clinical indicators are provided on the bottom of this form for your review Please check appropriate box(s) to clarify if the following diagnosis has been ruled in or ruled out: Sepsis [ X] Ruled in diagnosis [ X ] Continue to treat [ ] Resolved [ ] Ruled out diagnosis [ ] Cannot rule out diagnosis [ ] Other diagnosis [ ] Unable to determine For continuity of documentation, please document condition throughout progress notes and discharge summary. Thank You. CLINICAL INDICATORS - SIGNS / SYMPTOMS / LABS Laboratory 03/16 WBC 11.4, Plt count 189, neutrophils 72.5, Troponin 0.136; 0.092 Vital signs 03/16 BP 136/84, Pulse 112, Resp 18, Temp 101.1 H&P p1 03/16 Dr Chi Pt was found to have fever and tachycardia upon presentation to ER H&P p4 03/16 Dr Chi AMS likely 2/2 sepsis from UTI H&P p6 03/16 Dr Chi Admit for Severe Sepsis 2/2 UTI. Meet severe criteria with elevated trop Hospitalist PN p4 03/20 Toxic Metabolic Encephalopathy/Sepsis due to UTI Hospitalist PN p4 03/20 Staph bacteremia prob contaminant Consult p1 03/18 Urine culture: E.coli RISK FACTORS H&P p1 03/16 74 year-old female H&P p2 03/16 HTN H&P p2 03/16 hx of lung ca with brain mets H&P p2 03/16 Former smoker H&P p2 03/16 Hypothyroidism H&P p4 03/16 Hx of seizures H&P p4 03/16 Spine mets Hospitalist PN p4 03/20 Obesity BMI 30.9 Hospitalist PN p4 03/20 Dementia Hospitalist PN p4 03/20 UTI TREATMENTS JAN 27 IV Vancomycin 2gm JAN 27 IVF NS 1L JAN 27 IV Ceftriaxone 2gm ID consult 03/18 Rajeev Jc H&P p4 03/16 Urine and blood culture (This form is maintained as a part of the permanent medical record) 2014 [email or web address]. All Rights Reserved [email or web address]
--- NOTE | 2020-03-23 06:53 | PQF ---
ENA CHANEY TONI MD c SURG [id number] CLINICAL DOCUMENTATION CLARIFICATION FORM: POST DISCHARGE Addendum to original discharge summary date: ____ Late entry note date: __ DATE: 03/23/2020 ATTN: Jose Amaro Please exercise your independent, professional judgment in responding to the clarification form. Clinical indicators are provided on the bottom of this form for your review Please check appropriate box(s) to clarify if the following diagnosis has been ruled in or ruled out: NSTEMI type 2 [ X ] Ruled in diagnosis [X ] Continue to treat [ ] Resolved [ ] Ruled out diagnosis [ ] Cannot rule out diagnosis [ ] Other diagnosis [ ] Unable to determine For continuity of documentation, please document condition throughout progress notes and discharge summary. Thank You. CLINICAL INDICATORS - SIGNS / SYMPTOMS / LABS Laboratory 03/16 Troponin 0.136; 0.092 Vital signs 03/16 BP 136/84, Pulse 112, Resp 18, Temp 101.1 H&P p1 03/16 Dr Chi Pt was found to have fever and tachycardia upon presentation to ER H&P p4 03/16 Dr Chi AMS likely 2/2 sepsis from UTI H&P p4 03/16 Dr Chi Type 2 NSTEMI trop elevated at ER. Likely 2/2 demand PN p4 03/19 Type 2 OK-POA RISK FACTORS H&P p1 03/16 74 year-old female H&P p2 03/16 HTN H&P p2 03/16 hx of lung ca with brain mets H&P p2 03/16 Former smoker H&P p2 03/16 Hypothyroidism H&P p4 03/16 Hx of seizures Hospitalist PN p4 03/20 Obesity BMI 30.9 Hospitalist PN p4 03/20 Dementia TREATMENTS MAR 03/16 IVF NS 1L MAR 03/16 Aspirin 81 mg oral MAR 03/16 Lovenox 40mg SC Repeat EKG 03/16 Repeat [facility] lab 03/17 Collected 03/16 - Electrocardiogram (This form is maintained as a part of the permanent medical record) 2014 [employer]. All Rights Reserved [email or web address] [email or web address]
== END 2020-03-22 11:41 | DRG 871 ==
LOC: SURG A 23:36
PROVIDERS: ADMIT Family Medicine; ATTEND Internal Medicine
DX: A41.51 Sepsis due to Escherichia coli [E. coli] (principal); G92 Toxic encephalopathy; I21.A1 Myocardial infarction type 2; N30.00 Acute cystitis without hematuria; C79.51 Secondary malignant neoplasm of bone; Z66 Do not resuscitate; I10 Essential (primary) hypertension; E03.9 Hypothyroidism, unspecified; K21.9 Gastro-esophageal reflux disease without esophagitis; G40.909 Epilepsy, unspecified, not intractable, without status epilepticus; F03.90 Unspecified dementia, unspecified severity, without behavioral disturbance, psychotic disturbance, mood disturbance, and anxiety; G25.0 Essential tremor; E78.5 Hyperlipidemia, unspecified; E66.9 Obesity, unspecified; Z68.30 Body mass index [BMI] 30.0-30.9, adult; Z88.5 Allergy status to narcotic agent; Z88.2 Allergy status to sulfonamides; Z88.1 Allergy status to other antibiotic agents; Z91.041 Radiographic dye allergy status; Z79.899 Other long term (current) drug therapy; Z79.890 Hormone replacement therapy; Z90.49 Acquired absence of other specified parts of digestive tract; Z90.710 Acquired absence of both cervix and uterus; Z90.2 Acquired absence of lung [part of]; Z87.891 Personal history of nicotine dependence; Z85.118 Personal history of other malignant neoplasm of bronchus and lung; Z92.21 Personal history of antineoplastic chemotherapy; Z92.3 Personal history of irradiation; Z85.841 Personal history of malignant neoplasm of brain
CPT/HCPCS: 36415; 74176; 76770; 80053; 80164; 80177; 82607; 82746; 83735; 84145; 84146; 84436; 84439; 84484; 85025; 93005; 93010; J0696; J1650; J3370; J3490; J7030; J7050